=== PATIENT | male | born 1970 | race African-American/Black ===

== ENCOUNTER 2017-12-07 11:09 | Emergency (ER) | payer OTHER ==
[~2017-12-07] VITALS: Ht 182.9 cm; Wt 84.8 kg
[2017-12-07 11:16] VITALS: BP 129/88
--- NOTE | 2017-12-07 11:24 | ED GENERAL ADULT ---
History of Present Illness General Chief Complaint: General Adult Stated Complaint: PT STATES"I NEED MEDS TO GET ME THRU UNTIL DETOX" Source: patient Exam Limitations: no limitations Vital Signs & Intake/Output Vital Signs & Intake/Output Vital Signs Date Time Temp Pulse Resp B/P B/P Pulse O2 O2 Flow FiO2 Mean Ox Delivery Rate 12/07 1116 97.6 88 20 129/88 97 Room Air Allergies Coded Allergies: No Known Allergies (12/07/17) Reconcile Medications Hydrocodone/Acetaminophen (Hydrocodon-Acetaminophn 10-325) 10 MG-325 MG TABLET 1 TAB PO 4XDP PAIN Tramadol HCl 50 MG TABLET 1 TAB PO TID PAIN Triage Note: PT TO ED REQUESTING PAIN MED REFILL. PT IS GOING TO [facility] IN 1 WEEK FOR PAIN MED DETOX. STATES HE IS ON HIS LAST DAY OF PAIN MEDS. Triage Nurses Notes Reviewed? yes Onset: Abrupt Timing: recent history Injury Environment: home HPI: 47-year-old male with a history of rectal cancer that is been on pain medication for the last 5 years comes in requesting a refill on his Vicodin and tramadol. He reports that he is going into a detox facility next week because he is trying to come off these medications permanently. This prescription just ran out today and he just needs enough pain medication to get him through until he starts his detox program. He had rectal cancer previously with the anastomosis with the colon. He denies any suicidal or homicidal ideation. Denies any other associated symptoms. He is concern for withdrawal symptoms. (Tanner Borrego) Past History Travel History Traveled to [place] past 21 day No Medical History Any Pertinent Medical History? see below for history Cancer(s): RECTAL CA Surgical History Surgical History: RECTUM Psychosocial History What is your primary language Swedish Tobacco Use: Never used ETOH Use: denies use Illicit Drug Use: denies illicit drug use Family History Hx Contributory? No (Tanner Borrego) Review of Systems Review of Systems Constitutional: Reports: no symptoms. EENTM: Reports: no symptoms. Respiratory: Reports: no symptoms. Cardiovascular: Reports: no symptoms. GI: Reports: no symptoms. Genitourinary: Reports: no symptoms. Musculoskeletal: Reports: no symptoms. Skin: Reports: no symptoms. Neurological/Psychological: Reports: no symptoms. Hematologic/Endocrine: Reports: no symptoms. Immunologic/Allergic: Reports: no symptoms. All Other Systems: Reviewed and Negative (Tanner Borrego) Physical Exam Physical Exam General Appearance: well developed/nourished, alert, awake Head: atraumatic Eyes: Bilateral: normal appearance. Ears, Nose, Throat: normal ENT inspection, hearing grossly normal Neck: normal inspection Respiratory: no respiratory distress Cardiovascular: regular rate/rhythm Back: normal range of motion Extremities: normal inspection Neurologic/Psych: awake, alert, oriented x 3 Skin: intact, normal color Core Measures ACS in differential dx? No CVA/TIA Diagnosis: No Sepsis Present: No Sepsis Focused Exam Completed? No (Tanner Borrego) Progress Differential Diagnoses I considered the following diagnoses in my evaluation of the patient: Chronic pain, drug-seeking, scar tissue, Plan of Care: 12/07/2017 12:27:51 PM I explained to the patient and I can only give him 10 tablets of each medication. He was told to contact his doctor and he needs to follow up with detox next week. He is alert and oriented. Does not appear to be intoxicated. He has never been here before. I do not feel that the patient is just drug seeking for medication at this time and I feel his story is accurate. Initial ED EKG: none (Tanner Borrego) Departure Departure Disposition: HOME OR SELF CARE Condition: Stable Clinical Impression Primary Impression: Chronic pain Additional Instructions: Follow-up with detox facility next week as already prescribed. Return if any worsening symptoms. Please go over all results of today's visit with your primary care doctor. Contact your primary care doctor to let them know you were here in the emergency room. There may be nonspecific findings which may not be related to your visit today here in the emergency room but may require further evaluation and chronic monitoring by your primary care doctor. If you had a laceration today the chance of foreign body always remains. You should follow-up with your primary care doctor for recheck in 3-5 days for a wound check. If you had an x-ray done there is a chance that a fracture could have been missed on initial read and you should follow-up with your primary care doctor for repeat x-rays if symptoms persist. If your blood pressure was elevated here in the emergency room please have rechecked by [facility] primary care doctor within the next 48. If you were prescribed a narcotic here in the emergency room or any type of controlled substances you're not allowed to drive while taking this medication or operate any type of heavy machinery. Narcotics can make you feel lightheaded dizziness nausea and can cause constipation. You may need to worm picker a stool softener. Thank you for choosing [facility] emergency room. Please return to the emergency room immediately if you have any other concerns worsening of symptoms. Departure Forms: Customer Survey General Discharge Information Prescriptions: Current Visit Scripts Hydrocodone/Acetaminophen (Hydrocodon-Acetaminophn 10-325) 1 TAB PO 4XDP #10 TAB Tramadol HCl 1 TAB PO TID #10 TAB (Tanner Borrego) PA/COMMERCIAL LOAN SPECIALIST Co-Sign Statement Statement: ED Attending supervision documentation- [] I saw and evaluated the patient. I have also reviewed all the pertinent lab results and diagnostic results. I agree with the findings and the plan of care as documented in the PA's/COMMERCIAL LOAN SPECIALIST's documentation. [X] I have reviewed the ED Record and agree with the PA's/COMMERCIAL LOAN SPECIALIST's documentation. [] Additions or exceptions (if any) to the PAs/COMMERCIAL LOAN SPECIALIST's note and plan are summarized below: [] (Meseret RIVERO,Chong Kevin) Critical Care Note Critical Care Note Critical Care Time: non-applicable (Tanner Borrego)
[2017-12-07] MEDS ORDERED: HYDROCODON-ACE1 EAC1 PO (11:36)
[2017-12-07] MEDS ORDERED: TRAMADOL HCL50 M1 PO (11:36)
== END 2017-12-07 11:44 ==
LOC: ERH 11:09
DX: G89.29 Other chronic pain (principal)
CPT/HCPCS: 99281